=== PATIENT | female | born 1980 | race Caucasian/White ===

== ENCOUNTER 2021-05-28 11:15 | Emergency (ER) | payer OTHER ==
[~2021-05-28] VITALS: Ht 167.6 cm; Wt 150.0 kg
[2021-05-28 11:24] VITALS: BP 151/117
[2021-05-28 14:25] LABS: CHLORIDE 104 mEq/L (98-107)
[2021-05-28 14:28] LABS: ETHANOL BLOOD < 10 mg/dL
[2021-05-28 14:51] LABS: CLARITY URINE CLEAR (CLEAR); COLOR URINE YELLOW (YELLOW); KETONES URINE NEGATIVE (NEGATIVE); LEUKOCYTE ESTERASE URINE 1+ (NEGATIVE); NITRITE URINE NEGATIVE (NEGATIVE); OCCULT BLOOD URINE 1+ (NEGATIVE); PROTEIN URINE 2+ (NEGATIVE); SPECIFIC GRAVITY URINE 1.009 (1.005-1.030); UROBILINOGEN URINE 0.2 E.U./dL (0.2-1.0)
[2021-05-28 15:29] LABS: *BARBITURATES SCREEN URINE NEGATIVE (NEGATIVE); *BENZODIAZEPINES SCREEN URINE NEGATIVE (NEGATIVE); METHADONE URINE SCREEN NEGATIVE (NEGATIVE); OPIATES URINE SCREEN NEGATIVE (NEGATIVE); PHENCYCLIDINE URINE SCREEN NEGATIVE (NEGATIVE)
[2021-05-28 15:37] LABS: *COCAINE SCREEN URINE NEGATIVE (NEGATIVE)
[2021-05-28 15:38] LABS: *AMPHETAMINES SCREEN URINE PRESUMTIVE POSITIVE (NEGATIVE)
[2021-05-28 15:39] LABS: CANNABINOID URINE SCREEN PRESUMTIVE POSITIVE (NEGATIVE)
== END 2021-05-28 15:35 | disposition left against medical advice (07) ==
LOC: ER 11:15
DX: R19.00 Intra-abdominal and pelvic swelling, mass and lump, unspecified site (principal); R60.0 Localized edema
CPT/HCPCS: 36415; 80053; 80305; 80320; 81003; 87077; 87186; 99283; G0480